=== PATIENT | female | born 1995 | race Asian ===

== ENCOUNTER 2017-05-24 20:22 | Emergency (ER) | payer MEDICAID ==
[~2017-05-24] VITALS: Ht 157.5 cm; Wt 90.7 kg
[2017-05-24 20:36] VITALS: BP 151/74
[2017-05-24] MEDS: KETOROLAC 30 MG/ML VIAL IM ONE (22:09)
[2017-05-24] MEDS: BACITRACIN OINT 500 UNITS/GM PKT TP ONE (22:09)
[2017-05-24 22:25] VITALS: BP 102/59
== END 2017-05-24 22:25 | disposition home or self-care (01) ==
LOC: MED 20:22
DX: S93.401A Sprain of unspecified ligament of right ankle, initial encounter (principal); S50.12XA Contusion of left forearm, initial encounter; V87.8XXA Person injured in other specified noncollision transport accidents involving motor vehicle (traffic), initial encounter; Y93.89 Activity, other specified; Y92.89 Other specified places as the place of occurrence of the external cause; Y99.8 Other external cause status
CPT/HCPCS: 73080; 73610; 81025; 96372; 99284; J1885